=== PATIENT | female | born 1935 | race Caucasian/White ===

== ENCOUNTER 2019-11-24 00:17 | Emergency (ER) | payer MEDICARE, BC ==
[~2019-11-24] VITALS: Ht 165.1 cm; Wt 65.8 kg
[2019-11-24] MEDS ORDERED: TETanus/Pertussis (Acell)/Diphther VAC/PF (Tdap-Adult) 0.5ml syringe IMVAC ONE (00:50)
[2019-11-24 02:24] VITALS: BP 149/94
== END 2019-11-24 02:26 | disposition home or self-care (01) ==
LOC: ER 00:18
DX: S01.511A Laceration without foreign body of lip, initial encounter (principal); S09.90XA Unspecified injury of head, initial encounter; M25.522 Pain in left elbow; R07.89 Other chest pain; E78.00 Pure hypercholesterolemia, unspecified; I10 Essential (primary) hypertension; W19.XXXA Unspecified fall, initial encounter; Y93.89 Activity, other specified; Y92.89 Other specified places as the place of occurrence of the external cause; Y99.8 Other external cause status
CPT/HCPCS: 70450; 71101; 72125; 73080; 90715; 99285